=== PATIENT | male | born 1990 | race Caucasian/White ===

== ENCOUNTER 2022-01-11 13:20 | Emergency (ER) | payer SELFPAY ==
[~2022-01-11] VITALS: Ht 170.2 cm; Wt 61.7 kg
[2022-01-11 13:28] VITALS: BP 133/113
--- NOTE | 2022-01-11 13:37 | NUR ---
PATIENT WALKING INTO PATIENT AREA, ASKED TO WAIT IN LOBBY TO BE SEEN. PATIENT REFUSING TO LEAVE, SECURITY CALLED FOR ASSISTANCE TO ESCORT PATIENT OUTSIDE.
--- NOTE | 2022-01-11 13:51 | NUR ---
PATIENT LEFT WITHOUT BEING SEEN BY DR. BARKSDALE. NO FURTHER CARE PROVIDED FOR PATIENT.
== END 2022-01-11 13:51 | disposition left against medical advice (07) ==
LOC: MED 13:20
DX: M54.50 Low back pain, unspecified (principal); Z53.21 Procedure and treatment not carried out due to patient leaving prior to being seen by health care provider